=== PATIENT | male | born 1960 | race Hispanic/Latino ===

== ENCOUNTER → 2018-09-03 | Outpatient (CLI) | payer OTHER ==
--- NOTE | 2018-09-03 16:46 | Diagnostic Imaging Report ---
PROCEDURE:X-RAY LEFT SHOULDER, COMPLETE COMPARISON:None. INDICATIONS:LEFT SHOULDER PAIN/NO TRAUMA FINDINGS: There are no fractures, dislocations, lytic or blastic lesions. There is irregularity and flaring at the AC joint which is degenerative in appearance. The bones are well-mineralized. The soft-tissues are unremarkable. CONCLUSION: AC joint degenerative changes. Matt Gutierrez D.O. Dictated by: Matt Gutierrez D.O. on 09/03/2018 at 16:56 Electronically approved by: Matt Gutierrez D.O. on 09/03/2018 at 16:56
== END ==
LOC: RAD 15:58
PROVIDERS: ATTEND Family Medicine
DX: M25.512 Pain in left shoulder (principal)

== ENCOUNTER → 2020-03-18 | Day surgery (SDC) | payer OTHER ==
[2020-03-15 11:35] LABS: BASOPHILS % 0.4 % (0.0-1.0); EOSINOPHILS # (AUTO) 0.1 (0.0-0.4); EOSINOPHILS % 0.9 % (0.0-6.0); HEMATOCRIT 44.6 % (38.2-49.6); HEMOGLOBIN 14.4 g/dL (14.0-18.0); LYMPHOCYTES # (AUTO) 2.2 (1.0-3.2); LYMPHOCYTES % 39.8 % (18.0-39.1); MEAN CORPUSCULAR HEMOGLOBIN 31.2 pg (28-32); MEAN CORPUSCULAR HGB CONC 32.3 g/dL (31-35); MEAN CORPUSCULAR VOLUME 96.7 fL (81-99); MONOCYTES # (AUTO) 0.5 (0.2-0.8); MONOCYTES % 8.9 % (4.4-11.3); NEUTROPHILS # (AUTO) 2.8 (2.1-6.9); NEUTROPHILS % 49.8 % (38.7-80.0); PLATELET COUNT 212 x10e3/uL (140-360); RED BLOOD COUNT 4.61 x10e6/uL (4.3-5.7); RED CELL DISTRIBUTION WIDTH 13.8 % (11.7-14.4)
[2020-03-15 11:52] LABS: ANION GAP 11.8 mmol/L (8-16); BLOOD UREA NITROGEN 16 mg/dL (7-26); BUN/CREATININE RATIO 15 (6-25); CALCIUM 9.5 mg/dL (8.4-10.2); CARBON DIOXIDE 22 mmol/L (22-29); CHLORIDE 109 mmol/L (98-107); EST GLOMERULAR FILTRATION RATE > 60 ML/MIN (60-); GLUCOSE 113 mg/dL (74-118); POTASSIUM 3.8 mmol/L (3.5-5.1); SODIUM 139 mmol/L (136-145)
[~2020-03-18] MED LIST: ACETAMINOPHEN 1000 MG/100 ML IV ONE; ACETAMINOPHEN/CODEINE 300MG - 30MG TAB ONE; BUPIVACAINE 0.25%/EPI 30ML SDV INJ ONE; CEFAZOLIN SOD 1 GM/NS 50ML 50 ML IV ONE; DEXAMETHASONE SOD PHOS INJ 4 MG/ML VIAL ONE; EPHEDRINE SULFATE INJ 50 MG/ML VIAL ONE; FENTANYL CITRATE/PF 100MCG/2 ML INJ ONE; KETOROLAC TROMETHAMINE 30 MG/ML VIAL ONE; LIDOCAINE HCL 2% LOCAL INJ 5 ML SDV VIAL INJ ONE; ONDANSETRON HCL INJ 2MG/ML 2ML 2 MG/ML VIAL ONE; PROPOFOL IV EMULSION 10 MG/ML 20 ML VIAL ONE; SEVOFLURANE INHAL SOLN 250 ML PEN BTL ONE
--- NOTE | 2020-03-18 07:10 | NUR ---
SPIRITUAL CARE - Pre-Surgery Assessment: Pt in bed. Pt's at bedside. Pt reported supportive attention from family and friends. Intervention: Provided pastoral presence, hospitality, and sympathetic listening. Acquainted pt with availability of kids activities coach while hospitalized. Outcome: Pt expressed appreciation for visit. No need for follow up indicated at this time. KIKI Golain Spiritual Care Department O: [phone]
--- NOTE | 2020-03-18 09:32 | Operative Report ---
DATE OF PROCEDURE: 03/18/2020 SURGEON: Joe Candelario MD PREOPERATIVE DIAGNOSIS: Bilateral inguinal hernia. POSTOPERATIVE DIAGNOSIS: Bilateral inguinal hernia. PROCEDURE PERFORMED: Repair of right inguinal hernia. ANESTHESIA: General. DRY CLEANING ATTENDANT: LELO Escamilla. ESTIMATED BLOOD LOSS: Minimal. DRAINS: None. COMPLICATIONS: None. INDICATION AND FINDINGS: The patient is a 59-year-old male, who had been complaining of a bulge and pain in the right groin after squatting several days ago. He was diagnosed with a right inguinal hernia by his primary physician. When I examined him, he also had a left inguinal hernia. He is now admitted for staged repair of bilateral inguinal hernias beginning with the symptomatic site first. INTRAOPERATIVE FINDINGS: Direct hernia. No indirect hernia sac. The Ultrapro hernia system, oval type was placed. DESCRIPTION OF PROCEDURE: With the patient lying on the operative table in the supine position, after administration of general anesthesia, he was prepped and draped for repair of right inguinal hernia. Preemptive anesthesia was given with 0.25% Marcaine with epinephrine as an ilioinguinal nerve block and an incisional nerve block. A transverse incision was made deep into the skin, subcutaneous tissue, Serjio fascia until the external oblique aponeurosis was identified. This was incised along the course of its fibers transecting the external inguinal ring. Medial and lateral leaves were developed. The cord was mobilized at the level of the pubic tubercle and retracted away from the operative field by Kyaw drain. The cremaster Dani was incised. No indirect hernia sac was seen. Basically had a blowout of the inguinal canal floor. We went ahead and excised the attenuated transversalis fascia, entered the preperitoneal space developed a pocket using blunt dissection and then we deployed the mesh with the underlay part of the mesh over the direct space and the overlay part of the mesh over the inguinal canal floor. A slit was made to accommodate the cord. The mesh was secured to local tissues using a series of interrupted 2-0 Ethibond sutures were also used to close the slit of the mesh. After we did that, we irrigated the wound. The sponge and instrument count was pronounced correct. The wound was closed in layers using 2-0 Vicryl for the external oblique aponeurosis, 2-0 plain catgut for the soft tissues. The skin was closed using orville. During this procedure, we gave preemptive anesthesia with 0.25% Marcaine with epinephrine as an ilioinguinal nerve block and incisional nerve block. The patient tolerated the procedure well, taken to recovery room in stable condition. MD FRANCISCO J Betancourt/JOSEPHINE /[id number]
[2020-03-18 10:00] VITALS: BP 131/81
== END | disposition home or self-care (01) ==
LOC: OR 05:34
PROVIDERS: ATTEND Surgery
DX: K40.90 Unilateral inguinal hernia, without obstruction or gangrene, not specified as recurrent (principal); Z01.810 Encounter for preprocedural cardiovascular examination; Z01.812 Encounter for preprocedural laboratory examination; Z11.59 Encounter for screening for other viral diseases
CPT/HCPCS: 36415; 49505; 80048; 85025; 87635; 93005; C1781; J0131; J0690; J1100; J1885; J2001; J2405; J2704; J3010

== ENCOUNTER 2022-10-09 06:49 | Outpatient (RCR) | payer OTHER | END 2022-11-06 | LOC: PT 06:49 | PROVIDERS: ATTEND Specialist | DX: S39.012A Strain of muscle, fascia and tendon of lower back, initial encounter (principal); M54.32 Sciatica, left side ==

== ENCOUNTER → 2023-02-12 | Outpatient (CLI) | payer OTHER | LOC: US 08:16 | PROVIDERS: ATTEND Family Medicine | DX: K30 Functional dyspepsia (principal) | CPT/HCPCS: 74240; 76700 ==